=== PATIENT | male | born 2000 | race Caucasian/White ===

== ENCOUNTER 2023-12-31 13:34 | Outpatient (CLI) | payer BC, SELFPAY ==
--- NOTE | 2023-12-31 14:00 | CRLHL7_ITS ---
For Patients: As a result of the Century Cures Act, medical imaging exams and procedure reports are released immediately into your electronic medical record. You may view this report before your referring provider. If you have questions, please contact your health care provider. Indication: upper abd pain x 4 months Technique: CT Abdomen/Pelvis 86 cc Isovue 370 Please note that all CT scans at this facility use dose modulation, iterative reconstruction, and/or weight-based dosing when appropriate to reduce radiation dose to as low as reasonably achievable. Comparison: None Findings: Lung bases are clear. Normal liver, gallbladder, spleen, pancreas, adrenal glands, kidneys, ureters and bladder. Trace pelvic free fluid noted. No bowel obstruction. No abscess or free air. No abdominal wall hernia. Normal osseous structures. Impression: Trace pelvic free fluid. Remainder of the examination is normal. This could be due to mild underlying enteritis. Please note that all CT scans at this facility use dose modulation, iterative reconstruction, and/or weight-based dosing when appropriate to reduce radiation dose to as low as reasonably achievable. Dictated by Julio Cesar Singh MD @ 01/01/2024 9:43:31 AM (Electronically Signed)
== END 2023-12-31 13:35 | disposition home or self-care (01) ==
PROVIDERS: PCP Pediatrics; Visit Provider Family Medicine
DX: R10.11 Right upper quadrant pain (principal)
CPT/HCPCS: 74177; Q9967